=== PATIENT | female | born 1960 | race Caucasian/White ===

== ENCOUNTER 2019-05-26 15:59 | Inpatient (IN) ==
[2019-05-26 16:54] LABS: Basophils # 0.1 K/mcL (0.0-0.2); Basophils % 0.7 %; Eosinophils # 0.1 K/mcL (0.0-0.6); Eosinophils % 1.5 %; Hematocrit 42.5 % (35.3-44.9); Immature Granulocytes % 0.5 % (0-4); Lymphocytes # 1.4 K/mcL (0.6-4.6); Lymphocytes % 16.9 %; Mean Corpuscular HGB Conc 35.3 g/dL (31.6-35.5); Mean Corpuscular Hemoglobin 31.8 pg (28.0-33.3); Mean Platelet Volume 9.2 fL (9.4-12.4); Monocytes # 0.5 K/mcL (0.0-1.3); Monocytes % 6.4 %; Neutrophils # 6.2 K/mcL (1.6-8.9); Platelet Count 362 K/mcL (140-400); Red Blood Count 4.72 M/mcL (3.82-4.97); Red Cell Distribution Width 12.4 % (11.5-14.5); White Blood Count 8.4 K/mcL (4.3-11.1)
[2019-05-26 17:13] LABS: BUN/Creatinine Ratio 8 (6-26); Blood Urea Nitrogen 5 mg/dL (6-20); Calcium 9.9 mg/dL (8.6-10.3); Carbon Dioxide 25 mEq/L (23-29); Chloride 100 mEq/L (98-107); Glucose 89 mg/dL (70-105); Osmolality,Calculated 273 (280-300); Potassium 4.1 mEq/L (3.5-5.1); Sodium 133 mEq/L (136-145); eGFR For African Americans > 60 (> 60); eGFR For Non-African Americans > 60 (> 60)
[2019-05-26] MEDS ORDERED: Isovue-370 500 ML BOTTLE IVP ONE (18:13)
[2019-05-26] MEDS ORDERED: 0.9 % Sodium Chloride 1,000 ML IVC ONE (18:14)
[2019-05-26] MEDS ORDERED: Ondansetron 4 MG/2 ML VIAL IVP ONE (18:15)
[2019-05-26] MEDS ORDERED: Ketorolac 15 MG/ML VIAL IVP ONE (18:15)
[2019-05-26] MEDS ORDERED: Famotidine 20 MG/2 ML VIAL IVP ONE (18:17)
[2019-05-26 18:38] LABS: Lipase 9 Units/L (11-82)
[2019-05-26 19:09] LABS: Bilirubin,Urine Negative (Negative); Blood,Urine Trace (Negative); Clarity,Urine Clear (Clear); Color,Urine Yellow (Yellow); Glucose,Urine (UA) Normal (Normal); Ketones,Urine Negative (Negative); Leukocyte Esterase,Urine Negative (Negative); Nitrite,Urine Negative (Negative); Protein,Urine Negative (Neg-Trace); Specific Gravity,Urine 1.005 (1.010-1.025); Urobilinogen,Urine Normal (Normal)
[2019-05-26 19:12] LABS: Bacteria,Urine None Seen per hpf (None-Few); Hyaline Casts,Urine None Seen per lpf (None-Few); RBC,Urine 0-3 per hpf (0-3); Squamous Epithelial Cell,Urine Few per lpf (None-Few); WBC,Urine 0-3 per hpf (0-3)
[2019-05-26] MEDS ORDERED: Nicotine 14 MG PATCH.TD24 TD SCH (21:15)
[2019-05-26] MEDS ORDERED: MetroNIDAZOLE 500 MG/100 ML 500 MG/100 ML BAG IVPB ONE (21:23)
[2019-05-26] MEDS: levoFLOXacin 500 MG/100 ML 500 MG/100 ML BAG IVPB ONE (22:31)
[2019-05-26] MEDS ORDERED: Ondansetron 4 MG/2 ML VIAL IVP PRN (23:29)
[2019-05-26] MEDS ORDERED: Naloxone 0.4 MG/ML INJ IVP PRN (23:29)
[2019-05-26] MEDS ORDERED: Ringers Solution, Lactated 1,000 ML IVC SCH (23:30)
[2019-05-26] MEDS ORDERED: traZODone 50 MG TABLET PO SCH (23:45)
[2019-05-27] MEDS: clonazePAM 0.5 MG TABLET PO SCH ×3 (00:37→20:33)
[2019-05-27] MEDS ORDERED: Melatonin 3 MG TABLET PO SCH (01:45)
[2019-05-27] MEDS: levoFLOXacin 500 MG/100 ML 500 MG/100 ML BAG IVPB ONE (02:00)
[2019-05-27] MEDS ORDERED: amLODIPine 5 MG TABLET PO SCH (09:00)
[2019-05-27] MEDS ORDERED: *HR* OxyCODONE Immed Rel 5 MG TABLET PO PRN (09:45)
[2019-05-27] MEDS ORDERED: *HR* Labetalol 20 MG/4 ML SYRINGE IVP PRN (09:45)
[2019-05-27] MEDS ORDERED: *HR* HYDROmorphone (PF) 1 MG/ML SYRINGE IVP PRN (09:45)
[2019-05-27] MEDS ORDERED: *HR* Promethazine 25 MG/ML VIAL IVP PRN (09:45)
[2019-05-27] MEDS ORDERED: Ketorolac 30 MG/ML VIAL IVP ONE (09:45)
[2019-05-27] MEDS ORDERED: Albuterol 2.5 MG/3 ML NEBULIZER IH PRN (09:45)
[2019-05-27] MEDS ORDERED: Ondansetron 4 MG/2 ML VIAL IVP ONE (09:45)
[2019-05-27] MEDS ORDERED: CefOXitin 1,000 MG VIAL ONE (09:51)
[2019-05-27] MEDS ORDERED: *HR* FentaNYL (PF) 100 MCG/2 ML VIAL ONE ×2 (09:53→11:00)
[2019-05-27] MEDS ORDERED: *HR* Midazolam HCl 2 MG/2 ML VIAL ONE (09:53)
[2019-05-27] MEDS ORDERED: Lidocaine -MPF 2% 2 ML VIAL ONE ×2 (09:55→10:59)
[2019-05-27] MEDS ORDERED: Lidocaine HCL 4 ML Topical Solution (Laryng-O-Jet Kit Sterile Pak) TP ONE (09:55)
[2019-05-27] MEDS ORDERED: Dexamethasone 4 MG/ML VIAL ONE (09:55)
[2019-05-27] MEDS ORDERED: *HR* Propofol 200 MG/20 ML VIAL IVP ONE (09:56)
[2019-05-27] MEDS ORDERED: EPHEDrine 50 MG/ML VIAL ONE (10:18)
[2019-05-27] MEDS ORDERED: *HR* PHENYLEPHRINE 1,000 MCG/10 ML SYRINGE IVP ONE (10:20)
[2019-05-27] MEDS ORDERED: Acetaminophen IV 1,000 MG/100 ML INFUS..BTL ONE (10:43)
[2019-05-27] MEDS ORDERED: CefOXitin 2,000 MG VIAL ONE (11:16)
[2019-05-27] MEDS ORDERED: Ropivacaine/PF 0.5% 30 ML VIAL ONE (11:36)
[2019-05-27] MEDS ORDERED: Ringers Solution, Lactated 1,000 ML ONE (12:39)
[2019-05-27] MEDS ORDERED: *HR* Metoprolol 5 MG/5 ML VIAL IVP PRN (12:54)
[2019-05-27] MEDS: 0.9 % Sodium Chloride 1,000 ML IVC SCH (14:23)
[2019-05-27] MEDS: Ondansetron 4 MG/2 ML VIAL IVP PRN ×2 (14:24→23:36)
[2019-05-27] MEDS: MetroNIDAZOLE 500 MG/100 ML 500 MG/100 ML BAG IVPB SCH ×2 (15:56→23:37)
[2019-05-27] MEDS: *HR* OxyCODONE/APAP 5/325 TABLET PO PRN ×2 (15:56→23:37)
[2019-05-27] MEDS: *HR* Heparin 5,000 UNIT/ML VIAL SQ SCH (17:15)
[2019-05-27] MEDS: Nicotine 14 MG PATCH.TD24 TD SCH (20:33)
[2019-05-27] MEDS: traZODone 50 MG TABLET PO SCH (20:33)
[2019-05-27] MEDS: Acetaminophen IV 1,000 MG/100 ML INFUS..BTL IVPB SCH (20:33)
[2019-05-28] MEDS: Acetaminophen IV 1,000 MG/100 ML INFUS..BTL IVPB SCH ×5 (01:38→23:24)
[2019-05-28] MEDS: Pantoprazole 40 MG VIAL IVP SCH ×2 (01:58→09:45)
[2019-05-28 04:50] LABS: Basophils % 0.2 %; Hematocrit 40.9 % (35.3-44.9); Hemoglobin 13.6 g/dL (11.5-15.4); Immature Granulocytes % 0.5 % (0-4); Lymphocytes # 0.9 K/mcL (0.6-4.6); Lymphocytes % 5.2 %; Mean Corpuscular HGB Conc 33.3 g/dL (31.6-35.5); Mean Corpuscular Hemoglobin 31.2 pg (28.0-33.3); Mean Corpuscular Volume 93.8 fL (83.0-100.0); Mean Platelet Volume 9.5 fL (9.4-12.4); Monocytes % 5.5 %; Neutrophils # 15.5 K/mcL (1.6-8.9); Platelet Count 353 K/mcL (140-400); Red Blood Count 4.36 M/mcL (3.82-4.97); Red Cell Distribution Width 12.5 % (11.5-14.5); Segmented Neutrophils % 88.6 %
[2019-05-28 04:51] LABS: White Blood Count 17.5 K/mcL (4.3-11.1)
[2019-05-28 05:08] LABS: BUN/Creatinine Ratio 10 (6-26); Blood Urea Nitrogen 6 mg/dL (6-20); Calcium 9.6 mg/dL (8.6-10.3); Carbon Dioxide 25 mEq/L (23-29); Chloride 100 mEq/L (98-107); Glucose 136 mg/dL (70-105); Magnesium 1.8 mg/dL (1.6-2.6); Osmolality,Calculated 282 (280-300); Phosphorous 2.9 mg/dL (2.7-4.5); Potassium 3.4 mEq/L (3.5-5.1); Sodium 136 mEq/L (136-145); eGFR For African Americans > 60 (> 60); eGFR For Non-African Americans > 60 (> 60)
[2019-05-28 05:21] LABS: Carcinoembryonic Antigen 2.5 ng/mL (Less than 5.0)
[2019-05-28] MEDS: *HR* Heparin 5,000 UNIT/ML VIAL SQ SCH ×2 (05:31→18:45)
[2019-05-28] MEDS: 0.9 % Sodium Chloride 1,000 ML IVC SCH ×2 (05:32→20:24)
[2019-05-28] MEDS: *HR* OxyCODONE/APAP 5/325 TABLET PO PRN ×2 (07:27→16:34)
[2019-05-28] MEDS ORDERED: Potassium Chloride 40 MEQ, Lidocaine 1% 2 ML in 0.9 % Sodium Chloride 500 ML IVPB ONE (07:47)
[2019-05-28] MEDS: clonazePAM 0.5 MG TABLET PO SCH ×3 (09:45→20:24)
[2019-05-28] MEDS: MetroNIDAZOLE 500 MG/100 ML 500 MG/100 ML BAG IVPB SCH ×3 (09:48→23:24)
[2019-05-28] MEDS: levoFLOXacin 750 MG/150 ML 750 MG/150 ML BAG IVPB SCH (09:50)
[2019-05-28] MEDS: Ondansetron 4 MG/2 ML VIAL IVP PRN (13:12)
[2019-05-28] MEDS: traZODone 50 MG TABLET PO SCH (20:24)
[2019-05-28] MEDS: Nicotine 14 MG PATCH.TD24 TD SCH (20:26)
[2019-05-29] MEDS: Acetaminophen IV 1,000 MG/100 ML INFUS..BTL IVPB SCH ×4 (03:25→23:34)
[2019-05-29] MEDS: *HR* Heparin 5,000 UNIT/ML VIAL SQ SCH ×2 (03:25→18:54)
[2019-05-29] MEDS: Ondansetron 4 MG/2 ML VIAL IVP PRN (03:30)
[2019-05-29 07:50] LABS: Basophils % 0.3 %; Hematocrit 37.7 % (35.3-44.9); Hemoglobin 12.9 g/dL (11.5-15.4); Immature Granulocytes % 0.4 % (0-4); Lymphocytes # 1.2 K/mcL (0.6-4.6); Lymphocytes % 8.9 %; Mean Corpuscular HGB Conc 34.2 g/dL (31.6-35.5); Mean Corpuscular Hemoglobin 31.4 pg (28.0-33.3); Mean Corpuscular Volume 91.7 fL (83.0-100.0); Mean Platelet Volume 9.2 fL (9.4-12.4); Monocytes # 0.7 K/mcL (0.0-1.3); Monocytes % 5.3 %; Neutrophils # 11.9 K/mcL (1.6-8.9); Platelet Count 336 K/mcL (140-400); Red Blood Count 4.11 M/mcL (3.82-4.97); Red Cell Distribution Width 12.8 % (11.5-14.5); Segmented Neutrophils % 85.1 %
[2019-05-29 08:08] LABS: BUN/Creatinine Ratio 11 (6-26); Blood Urea Nitrogen 6 mg/dL (6-20); Calcium 9.2 mg/dL (8.6-10.3); Carbon Dioxide 23 mEq/L (23-29); Chloride 103 mEq/L (98-107); Glucose 96 mg/dL (70-105); Magnesium 1.8 mg/dL (1.6-2.6); Osmolality,Calculated 279 (280-300); Phosphorous 1.9 mg/dL (2.7-4.5); Potassium 3.4 mEq/L (3.5-5.1); Sodium 136 mEq/L (136-145); eGFR For African Americans > 60 (> 60); eGFR For Non-African Americans > 60 (> 60)
[2019-05-29] MEDS: MetroNIDAZOLE 500 MG/100 ML 500 MG/100 ML BAG IVPB SCH ×3 (08:52→23:35)
[2019-05-29] MEDS: levoFLOXacin 750 MG/150 ML 750 MG/150 ML BAG IVPB SCH (08:53)
[2019-05-29] MEDS: Pantoprazole 40 MG VIAL IVP SCH (08:53)
[2019-05-29] MEDS: clonazePAM 0.5 MG TABLET PO SCH ×3 (08:53→21:31)
[2019-05-29] MEDS: 0.9 % Sodium Chloride 1,000 ML IVC SCH (14:01)
[2019-05-29] MEDS: *HR* OxyCODONE/APAP 5/325 TABLET PO PRN (16:14)
[2019-05-29] MEDS: Nicotine 14 MG PATCH.TD24 TD SCH (16:35)
[2019-05-29] MEDS: traZODone 50 MG TABLET PO SCH (21:31)
[2019-05-30] MEDS: *HR* OxyCODONE/APAP 5/325 TABLET PO PRN ×3 (02:36→22:50)
[2019-05-30 03:47] LABS: BUN/Creatinine Ratio 8 (6-26); Blood Urea Nitrogen 4 mg/dL (6-20); Calcium 8.8 mg/dL (8.6-10.3); Carbon Dioxide 22 mEq/L (23-29); Chloride 106 mEq/L (98-107); Glucose 115 mg/dL (70-105); Magnesium 1.7 mg/dL (1.6-2.6); Osmolality,Calculated 276 (280-300); Phosphorous 1.2 mg/dL (2.7-4.5); Potassium 3.2 mEq/L (3.5-5.1); Sodium 134 mEq/L (136-145); eGFR For African Americans > 60 (> 60); eGFR For Non-African Americans > 60 (> 60)
[2019-05-30 03:51] LABS: Basophils % 0.4 %; Eosinophils # 0.1 K/mcL (0.0-0.6); Eosinophils % 0.6 %; Hemoglobin 12.4 g/dL (11.5-15.4); Immature Granulocytes % 0.5 % (0-4); Lymphocytes # 1.1 K/mcL (0.6-4.6); Lymphocytes % 10.1 %; Mean Corpuscular HGB Conc 34.4 g/dL (31.6-35.5); Mean Corpuscular Hemoglobin 31.2 pg (28.0-33.3); Mean Corpuscular Volume 90.7 fL (83.0-100.0); Mean Platelet Volume 9.5 fL (9.4-12.4); Monocytes # 0.6 K/mcL (0.0-1.3); Monocytes % 5.7 %; Neutrophils # 8.8 K/mcL (1.6-8.9); Platelet Count 314 K/mcL (140-400); Red Blood Count 3.97 M/mcL (3.82-4.97); Red Cell Distribution Width 12.6 % (11.5-14.5); Segmented Neutrophils % 82.7 %; White Blood Count 10.7 K/mcL (4.3-11.1)
[2019-05-30] MEDS: Acetaminophen IV 1,000 MG/100 ML INFUS..BTL IVPB SCH ×3 (06:02→18:19)
[2019-05-30] MEDS: 0.9 % Sodium Chloride 1,000 ML IVC SCH ×2 (06:02→21:30)
[2019-05-30] MEDS: *HR* Heparin 5,000 UNIT/ML VIAL SQ SCH ×2 (06:03→18:19)
[2019-05-30] MEDS: amLODIPine 5 MG TABLET PO SCH (07:15)
[2019-05-30] MEDS: clonazePAM 0.5 MG TABLET PO SCH ×3 (07:16→21:29)
[2019-05-30] MEDS: Pantoprazole 40 MG VIAL IVP SCH (07:18)
[2019-05-30] MEDS: MetroNIDAZOLE 500 MG/100 ML 500 MG/100 ML BAG IVPB SCH ×3 (07:19→22:50)
[2019-05-30] MEDS: levoFLOXacin 750 MG/150 ML 750 MG/150 ML BAG IVPB SCH (07:22)
[2019-05-30] MEDS: Nicotine 14 MG PATCH.TD24 TD SCH (21:29)
[2019-05-30] MEDS: traZODone 50 MG TABLET PO SCH (21:29)
[2019-05-31] MEDS: *HR* Heparin 5,000 UNIT/ML VIAL SQ SCH (05:23)
[2019-05-31] MEDS: *HR* OxyCODONE/APAP 5/325 TABLET PO PRN (05:26)
[2019-05-31 08:07] VITALS: BP 120/78
[2019-05-31] MEDS: clonazePAM 0.5 MG TABLET PO SCH (08:07)
[2019-05-31] MEDS: MetroNIDAZOLE 500 MG/100 ML 500 MG/100 ML BAG IVPB SCH (08:08)
[2019-05-31] MEDS: amLODIPine 5 MG TABLET PO SCH (08:08)
[2019-05-31] MEDS: Pantoprazole 40 MG VIAL IVP SCH (08:09)
[2019-05-31] MEDS: levoFLOXacin 750 MG/150 ML 750 MG/150 ML BAG IVPB SCH (08:09)
== END 2019-05-31 11:11 | disposition home or self-care (01) | DRG 330 ==
LOC: EMEROOARM 15:59 → 3ANU 15:59
PROVIDERS: ADMIT Surgery; ATTEND Surgery